=== PATIENT | female | born 1955 | race Caucasian/White ===

== ENCOUNTER 2020-06-15 03:03 | Emergency (ER) | payer MEDICARE ==
[~2020-06-15] VITALS: Ht 165.1 cm; Wt 86.0 kg
[~2020-06-15 03:03] MED LIST: ANTI-FUNGAL12 TOP; ASPIRIN ADULT L81 M2 PO; BABY ASPIRIN81 MG PO; BYETTA5 MCG SC; CHERATUSSIN PO; CIPROFLOXACN500 MG PO; FENOFIBRATE200 MG PO; FLEXERIL PO; HUMALOG KW50 MG/50 K SC; HUMALOG100 UNIT/M; INVOKAMET 150-11 TAB PO; INVOKANA100 MG PO; INVOKANA300 MG PO; LEVAQUIN750 MG PO; LEVEMIR1000 UNITS SC; LEVOTHYROXIN25 MC1 PO; LEVOTHYROXIN50 MC1 PO; LIPITOR80 M1 PO; LISINOPRIL10 MG PO; LOVAZA1 GM OR; LOVAZA1 GM PO; METFORMIN1000 MG PO; METFORMIN500 MG PO; NAPROSYN500 MG PO; NOVOLOG100 IU/1 M SC; OMEPRAZOLE20 MG PO; PERCOCET 10/31 COMBO PO; PREDNISONE20 MG PO; SIMVASTATIN40 MG PO; SOLU-MEDROL125 MG IM; TRULICITY1.5 MG/0.5 IJ; VITAMIN B CO PO; VITAMIN D2000 UNI1 PO; ZETIA10 MG PO; ZOFRAN4 MG PO
[2020-06-15 03:41] LABS: HEMATOCRIT 40.9 % (37.0-47.0); HEMOGLOBIN 13.8 g/dl (12.0-16.0); IMMATURE GRANULOCYTES 0.4 % (0.0-5.0); MEAN CELL VOLUME 80.5 fL CALC (80.0-100.0); MEAN CORPUSCULAR HGB 27.2 pG CALC (26.0-32.0); MEAN CORPUSCULAR HGB CONC 33.7 g/dL CAL (32.0-36.0); NEUT# 3.24 thou/uL (2.00-7.15); RED BLOOD COUNT 5.08 mill/uL (4.20-5.60); RED CELL DISTRI WIDTH 13.5 % (11.5-15.5)
[2020-06-15 03:47] LABS: URINE BILIRUBIN - DIPSTICK NEGATIVE (NEGATIVE); URINE BLOOD DIPSTICK NEGATIVE (NEGATIVE); URINE COLOR YELLOW; URINE GLUCOSE - DIPSTICK 250 mg/dL (NEGATIVE); URINE KETONE NEGATIVE (NEGATIVE); URINE LEUK ESTERASE NEGATIVE (NEGATIVE); URINE PH 6.5 (4.5-8.0); URINE PROTEIN - DIPSTICK NEGATIVE (NEG-TRACE); URINE SPECIFIC GRAVITY 1.015; URINE UROBILINOGEN - DIPSTICK 0.2 E.U./dL (0.2)
[2020-06-15 03:48] LABS: URINE NITRITE - DIPSTICK NEGATIVE (Negative)
[2020-06-15 04:00] LABS: ALBUMIN 4.5 g/dL (3.2-5.0); ALKALINE PHOSPHATASE 81 u/l (38-126); BILIRUBIN, TOTAL 0.7 mg/dL (0.0-1.4); BUN 16 mg/dL (8-23); BUN/CREATININE RATIO 20 (12-20 (CALC)); CARBON DIOXIDE 27 mmol/l (22-30); CHLORIDE 101 mmol/l (95-108); CREATININE 0.8 mg/dL (0.5-1.0); GFR > 60 ML/MIN (>=60 (CALC)); GFR FOR AFR.AMER. > 60 ML/MIN (>=60 (CALC)); POTASSIUM 3.8 mmol/l (3.5-5.1); SGOT/AST 22 u/l (9-36); TOTAL PROTEIN 7.2 g/dL (6.3-8.2)
[2020-06-15 04:03] LABS: ANION GAP 14 (6-22 (CALC)); SODIUM 138 mmol/l (137-146)
[2020-06-15 04:11] LABS: MYOGLOBIN 41 ng/mL (0 - 62)
[2020-06-15] MEDS ORDERED: PERCOCET 5/325M1 TAB PO (05:12)
[2020-06-15 05:18] VITALS: BP 133/67
[2020-06-15] MEDS ORDERED: CRESTOR5 M1 (05:18)
== END 2020-06-15 05:25 | disposition home or self-care (01) ==
LOC: ED 03:03
PROVIDERS: Emergency Medicine
DX: U07.1 COVID-19 (principal); M79.10 Myalgia, unspecified site; I10 Essential (primary) hypertension; E11.9 Type 2 diabetes mellitus without complications; Z79.4 Long term (current) use of insulin

== ENCOUNTER 2022-07-31 03:58 | Emergency (ER) | payer MEDICARE ==
[~2022-07-31] VITALS: Ht 165.1 cm; Wt 98.0 kg
[~2022-07-31 03:58] MED LIST changes: +CRESTOR5 M1; +PERCOCET 5/325M1 TAB PO
[2022-07-31 04:07] VITALS: BP 134/58
[2022-07-31 04:16] VITALS: BP 129/50
[2022-07-31] MEDS ORDERED: POLYTRIM OD (04:22)
[2022-07-31 04:30] VITALS: BP 134/68
[2022-07-31 04:43] VITALS: BP 134/68
== END 2022-07-31 04:43 | disposition home or self-care (01) ==
LOC: ED 03:58
DX: H10.9 Unspecified conjunctivitis (principal); I10 Essential (primary) hypertension; E11.9 Type 2 diabetes mellitus without complications; Z79.4 Long term (current) use of insulin

== ENCOUNTER 2023-11-14 13:55 | Emergency (ER) | payer MEDICARE ==
[~2023-11-14] VITALS: Ht 165.1 cm; Wt 94.0 kg
[~2023-11-14 13:55] MED LIST changes: +EZETIMIBE10 MG; +HUMULIN R500 UNIT/M; +KERENDIA20 MG; +LEVOTHYROXIN75 MC1 PO; +OMEPRAZOLE DR40 MG; +OZEMPIC2 MG; +POLYTRIM OD; +ROSUVASTATIN CA40 MG; +VALSARTAN40 MG
[2023-11-14 14:04] VITALS: BP 146/62
[2023-11-14] MEDS ORDERED: ONDANSETRON HCl 4 MG/2 ML SDV IV ONE (14:15)
[2023-11-14] MEDS ORDERED: SODIUM CHLORIDE 0.9% 1,000 ML IV ONE (14:15)
[2023-11-14 14:16] VITALS: BP 129/63
[2023-11-14 14:31] VITALS: BP 149/70
[2023-11-14 14:50] LABS: BASO% 0.1 % (0-3); EOS% 0.4 % (0-8); HEMATOCRIT 40.5 % (37.0-47.0); HEMOGLOBIN 14.2 g/dl (12.0-16.0); IMMATURE GRANULOCYTES 0.2 % (0.0-5.0); MEAN CELL VOLUME 79.9 fL CALC (80.0-100.0); MEAN CORPUSCULAR HGB CONC 35.1 g/dL CAL (32.0-36.0); MONO% 5.2 % (2-13); NEUT# 6.69 thou/uL (2.00-7.15); NEUT% 67.1 % (42-76); RED BLOOD COUNT 5.07 mill/uL (4.20-5.60); RED CELL DISTRI WIDTH 13.6 % (11.5-15.5)
[2023-11-14 15:01] VITALS: BP 133/64
[2023-11-14 15:09] LABS: D-DIMER 0.22 mg/L (0.19-0.60)
[2023-11-14 15:19] LABS: INTERNATIONAL NORMALIZED RATIO 1.1 RATIO (0.7-1.3)
[2023-11-14 15:20] LABS: PROTHROMBIN TIME 10.6 SECONDS (9.0-12.5)
[2023-11-14] MEDS ORDERED: ONDANSETRON4 MG PO (15:25)
[2023-11-14] MEDS ORDERED: PROMETHAZINE HCL 25 MG/ML AMP IM ONE (15:30)
== END 2023-11-14 15:45 | disposition home or self-care (01) ==
LOC: ED 13:55
PROVIDERS: Family Medicine
DX: K29.70 Gastritis, unspecified, without bleeding (principal); R06.02 Shortness of breath; E11.9 Type 2 diabetes mellitus without complications; I10 Essential (primary) hypertension; I25.10 Atherosclerotic heart disease of native coronary artery without angina pectoris; E24.9 Cushing's syndrome, unspecified; Z95.1 Presence of aortocoronary bypass graft; Z79.4 Long term (current) use of insulin; Z79.85 Long-term (current) use of injectable non-insulin antidiabetic drugs